=== PATIENT | male | born 1990 | race Two or more races ===

== ENCOUNTER 2019-03-27 09:15 | Emergency (ER) | payer MEDICAID ==
[~2019-03-27] VITALS: Ht 165.1 cm; Wt 63.5 kg
--- NOTE | 2019-03-27 09:23 | NUR ---
[id number], homeless, c/o left foot pain s/p tripped and fall,-ko. on room air, breathing evenly and unlabored. kept comfortable, will continue to monitor accordingly.
--- NOTE | 2019-03-27 09:43 | NUR ---
DIRECTOR OF HEALTHCARE [facility]S AT BEDSIDE
--- NOTE | 2019-03-27 09:54 | NUR ---
BREAKFAST TRAY PROVIDED TO PATIENT, TOLERATED PO WELL
--- NOTE | 2019-03-27 10:50 | NUR ---
Patient given written and verbal discharge instructions. Patient verbalizes understanding of instructions. Patient is ambulatory with steady gait. Refuses offer of intermediate placement. Patient given list of available shelters in surrounding area. discharged in proper clothing. name band removed. signed homeless waiiver form. all belongings returned.
[2019-03-27 10:51] VITALS: BP 121/70
== END 2019-03-27 10:52 | disposition home or self-care (01) ==
LOC: ER 09:17
DX: S93.492A Sprain of other ligament of left ankle, initial encounter (principal); Z59.0 Homelessness; W01.0XXA Fall on same level from slipping, tripping and stumbling without subsequent striking against object, initial encounter; Y93.89 Activity, other specified; Y92.89 Other specified places as the place of occurrence of the external cause; Y99.8 Other external cause status
CPT/HCPCS: 73610-TC